=== PATIENT | female | born 1955 | race Caucasian/White ===

== ENCOUNTER → 2016-12-09 | Outpatient (CLI) | payer OTHER ==
--- NOTE | 2016-12-09 16:39 | REPMRS ---
Patient History The patient states she had a clinical breast exam in Patient is postmenopausal. Family history of prostate cancer in father at age 50 or over and breast cancer in maternal aunt at age 60. Took hormonal contraceptives for 9 years. Took unspecified hormones for 1 year. Digital Woman Screen Mammo: December 09, 2016 - Exam #: [id number] Bilateral CC and MLO view(s) were taken. Technologist: Fatoumata Moody, Technologist Prior study comparison: December 08, 2015, digital woman screen mammo performed at [facility]. December 03, 2014, digital woman screen mammo performed at [facility]. November 19, 2013, bilateral bilat screen digital mammo, performed at [facility] ([facility]). FINDINGS: There are scattered fibroglandular densities. There is a moderate amount of residual fibroglandular tissue which is fairly symmetric. There is no interval development of dominant mass, architectural distortion, or clustered microcalcification typical of malignancy. There has been no change in the appearance of the mammogram from the prior studies. ASSESSMENT: BI-RADS/ACR category 1 mammogram. Negative. Recommendation Routine screening mammogram of both breasts in 1 year (for women over age 40). This mammogram was interpreted with the aid of an FDA-approved computer-aided dectection system. Electronically Signed By: Sid Schneider MD 12/09/16 [id number]
== END ==
LOC: M WHC 15:16
PROVIDERS: ATTEND Obstetrics & Gynecology
DX: Z12.31 Encounter for screening mammogram for malignant neoplasm of breast (principal); Z78.0 Asymptomatic menopausal state; Z80.3 Family history of malignant neoplasm of breast; Z80.42 Family history of malignant neoplasm of prostate; Z92.0 Personal history of contraception; Z92.29 Personal history of other drug therapy

== ENCOUNTER → 2017-12-12 | Outpatient (CLI) | payer OTHER | LOC: M WHC 12:55 | DX: Z12.39 Encounter for other screening for malignant neoplasm of breast (principal) ==

== ENCOUNTER → 2018-12-22 | Outpatient (CLI) | payer OTHER ==
--- NOTE | 2018-12-22 09:59 | REPMRS ---
Patient History The patient states she had a clinical breast exam in August 2018. Family history of prostate cancer at age 50 or over in father, breast cancer at age 60 in maternal aunt. Took hormonal contraceptives for 9 years. Took unspecified hormones for 1 year. 3D TOMOSYNTHESIS WAS PERFORMED. Digital Mammo Screening Bilat: December 22, 2018 - Exam #: [id number] Bilateral CC and MLO view(s) were taken. Technologist: Amy Ellis, Technologist Prior study comparison: December 12, 2017, digital woman screen mammo, performed at [facility]. December 09, 2016, digital woman screen mammo, performed at [facility]. FINDINGS: The breast tissue is heterogeneously dense. This may lower the sensitivity of mammography. There has been no change in the appearance of the mammogram from the prior studies. There is a moderate amount of residual fibroglandular tissue which is fairly symmetric. There is no interval development of dominant mass, areas of architectural distortion, or clustered microcalcification typical of malignancy. Assessment: BI-RADS/ACR category 1 mammogram. Negative Mammogram. Recommendation Routine screening mammogram in 1 year (for women over age 40). This mammogram was interpreted with the aid of an FDA-approved computer-aided dectection system. Electronically Signed By: Wale Peterson MD 12/22/18 [id number]
== END ==
LOC: M RAD 08:21
PROVIDERS: ATTEND Obstetrics & Gynecology
DX: Z12.31 Encounter for screening mammogram for malignant neoplasm of breast (principal); Z80.3 Family history of malignant neoplasm of breast; Z80.42 Family history of malignant neoplasm of prostate

== ENCOUNTER → 2020-06-18 | Outpatient (CLI) | payer OTHER ==
[~2020-06-18] MED LIST: ASPI81TA86 PO; ECOT81TA5 PO; FOLI0.4T PO; LEXA1TAB PO; MULTCAP PO; PYRI25TA2 PO; VITA-157 PO; VITA250T50 PO; VITA500C24 PO; ZOLM2.5T14 PO
== END ==
LOC: M LABSMTC 13:24
PROVIDERS: ATTEND Anesthesiology
DX: Z01.812 Encounter for preprocedural laboratory examination (principal); Z20.828 Contact with and (suspected) exposure to other viral communicable diseases

== ENCOUNTER 2020-06-23 06:44 | Day surgery (SDC) | payer OTHER ==
[~2020-06-23] VITALS: Ht 152.4 cm; Wt 56.6 kg
[~2020-06-23 06:44] MED LIST changes: -FOLI0.4T PO; +FOLI0.4T5 PO
[2020-06-23] MEDS ORDERED: propofoL 200 MG/20 ML VIAL As Ordered ONE (07:11)
[2020-06-23] MEDS ORDERED: LIDOCAINE 2% 100MG/5ML SDV (FOR ANES.) As Ordered ONE (07:11)
[2020-06-23] MEDS ORDERED: NS 1,000 ML IV ONE (07:30)
--- NOTE | 2020-06-23 07:57 | ROOR ---
Patient Name: Arlene Tovar Procedure Date: 06/23/2020 7:34 AM Date of : 1955 Age: 65 Room: [facility] Gender: Female Note Status: Finalized Procedure: Total Colonoscopy to Cecum Indications: Colon cancer screening in patient at increased risk: Family history of 1st-degree relative with colon polyps, Last colonoscopy: 2013 Providers: Juan Church MD Referring MD: Altagracia BOLAÑOS MD Requesting Provider: Medicines: Monitored Anesthesia Care Complications: No immediate complications. Procedure: Pre-Anesthesia Assessment: - The heart rate, respiratory rate, oxygen saturations, blood pressure, adequacy of pulmonary ventilation, and response to care were monitored throughout the procedure. The Colonoscope was introduced through the anus and advanced to the cecum, identified by appendiceal orifice and ileocecal valve. The colonoscopy was performed without difficulty. The patient tolerated the procedure well. The quality of the bowel preparation was excellent. Findings: The perianal and digital rectal examinations were normal. Non-bleeding internal hemorrhoids were found during retroflexion. The hemorrhoids were small and Grade I (internal hemorrhoids that do not prolapse). Scattered small-mouthed diverticula were found in the recto-sigmoid colon, sigmoid colon and descending colon. The exam was otherwise without abnormality on direct and retroflexion views. Impression: - Non-bleeding internal hemorrhoids. - Diverticulosis in the recto-sigmoid colon, in the sigmoid colon and in the descending colon. - The examination was otherwise normal on direct and retroflexion views. - No specimens collected. - The exam was otherwise normal to the cecum. Recommendation: - Patient has a contact number available for emergencies. The signs and symptoms of potential delayed complications were discussed with the patient. Return to normal activities tomorrow. Written discharge instructions were provided to the patient. - High fiber diet. - Discharge patient to home. - Continue present medications. - Repeat colonoscopy in 5 years for screening purposes. - Return to referring physician. - The findings and recommendations were discussed with the patient. Procedure Code(s): --- Professional --- G0105, Colorectal cancer screening; colonoscopy on individual at high risk Diagnosis Code(s): --- Professional --- Z83.71, Family history of colonic polyps K64.0, First degree hemorrhoids K57.30, Diverticulosis of large intestine without perforation or abscess without bleeding CPT copyright 2019 [employer]. All rights reserved. The codes documented in this report are preliminary and upon braille coder review may be revised to meet current compliance requirements. Juan Church MD Juan Church MD 06/23/2020 7:56:47 AM Electronically signed by Juan Church MD Number of Addenda: 0 Note Initiated On: 06/23/2020 7:34 AM Estimated Blood Loss: Estimated blood loss: none.
[2020-06-23 08:10] VITALS: BP 100/59
== END 2020-06-23 08:20 | disposition home or self-care (01) ==
LOC: M OPP 06:44
PROVIDERS: ATTEND Internal Medicine Gastroenterology
DX: Z12.11 Encounter for screening for malignant neoplasm of colon (principal); Z83.71 Family history of colonic polyps; K57.30 Diverticulosis of large intestine without perforation or abscess without bleeding; K64.0 First degree hemorrhoids; Z79.82 Long term (current) use of aspirin; Z79.899 Other long term (current) drug therapy; Z88.8 Allergy status to other drugs, medicaments and biological substances

== ENCOUNTER → 2024-10-10 | Outpatient (CLI) | payer MEDICARE, OTHER ==
[~2024-10-10] MED LIST changes: -VITA-157 PO; -VITA250T50 PO; +VITA250T7 PO; +VITAE40CA PO
== END ==
LOC: M WUC 08:42
PROVIDERS: ATTEND Internal Medicine
DX: M19.011 Primary osteoarthritis, right shoulder (principal)

== ENCOUNTER → 2025-04-10 | Outpatient (REF) | payer MEDICARE, OTHER ==
[~2025-04-10] MED LIST changes: +CYAN250T5 PO; -FOLI0.4T5 PO; +FOLI400T2 PO; -VITA250T7 PO
== END ==
LOC: M LAB REF 12:05
PROVIDERS: ATTEND Internal Medicine
DX: G43.909 Migraine, unspecified, not intractable, without status migrainosus (principal); Z79.899 Other long term (current) drug therapy

== ENCOUNTER 2025-06-12 10:55 | Day surgery (SDC) | payer MEDICARE, OTHER ==
[~2025-06-12] VITALS: Ht 152.4 cm; Wt 58.0 kg
[~2025-06-12 10:55] MED LIST changes: +MULTTAB61 PO; +ROSU5TAB49 PO; +VITA100C15 PO
[2025-06-12 12:11] VITALS: TEMP 97.9
[2025-06-12 12:34] VITALS: BP 112/59; O2SAT 98
== END 2025-06-12 12:44 | disposition home or self-care (01) ==
LOC: M OPP 10:55
PROVIDERS: ATTEND Internal Medicine Gastroenterology
DX: Z12.11 Encounter for screening for malignant neoplasm of colon (principal); D12.2 Benign neoplasm of ascending colon; K64.0 First degree hemorrhoids; K57.30 Diverticulosis of large intestine without perforation or abscess without bleeding; Z86.0100 Personal history of colon polyps, unspecified; Z88.0 Allergy status to penicillin; Z79.82 Long term (current) use of aspirin; Z79.899 Other long term (current) drug therapy